=== PATIENT | female | born 1980 | race Caucasian/White ===

== ENCOUNTER 2019-10-20 16:56 | Emergency (ER) | payer OTHER ==
[2019-10-20 17:02] VITALS: BP 114/67; PULSE 89; RESP 20; TEMP 98.9
--- NOTE | 2019-10-20 17:35 | ED ---
URI HPI - General Chief Complaint: Upper Respiratory Infection Stated Complaint: R/O Covid Time Seen by Provider: 10/20/19 17:05 Source: patient Mode of arrival: ambulatory Limitations: no limitations - History of Present Illness Initial Comments: 39-year-old female patient presents to the emergency department today for COVID- 19 testing. Patient is currently receiving rehabilitation at [facility] for heroin addiction. She had a visit with her boyfriend a couple of days ago who had a fever. Patient states that staff at [facility] wanted her tested for COVID-19. Patient states that she does have a mild cough that she has had this for several months. States it has not changed. She denies any chest pain or shortness of breath. Denies any fever or chills. She denies nausea, vomiting, diarrhea, or loss of taste or smell. Patient is 14 weeks . Denies any abdominal pain or cramping. Denies abnormal vaginal bleeding or discharge. Patient states she feels well and is unsure why they wanted her to be tested. Patient denies any recent rash, back pain, numbness, tingling, dizziness, weakness, hematuria, dysuria, urinary urgency, urinary frequency, headache, visual changes, or any other complaints. - Related Data Allergies Allergy/AdvReac Type Severity Reaction Status Date / Time No Known Allergies Allergy Verified 10/20/19 17:02 Review of Systems ROS Statement: Those systems with pertinent positive or pertinent negative responses have been documented in the HPI. ROS Other: All systems not noted in ROS Statement are negative. Past Medical History Past Medical History: No Reported History History of Any Multi-Drug Resistant Organisms: None Reported Past Surgical History: No Surgical Hx Reported Past Psychological History: No Psychological Hx Reported Smoking Status: Current every day smoker Past Alcohol Use History: None Reported Past Drug Use History: Heroin, Marijuana General Exam Limitations: no limitations General appearance: alert, in no apparent distress, other (This is a well- developed, well-nourished adult female patient in no acute distress. Vital signs upon presentation are temperature 98.9F, pulse 89, respirations 20, blood pressure 114/67, pulse ox 98% on room air.) Eye exam: Present: normal appearance, PERRL, EOMI. Absent: scleral icterus, conjunctival injection, periorbital swelling ENT exam: Present: normal exam, normal oropharynx, mucous membranes moist Respiratory exam: Present: normal lung sounds bilaterally. Absent: respiratory distress, wheezes, rales, rhonchi, stridor Cardiovascular Exam: Present: regular rate, normal rhythm, normal heart sounds. Absent: systolic murmur, diastolic murmur, rubs, gallop, clicks GI/Abdominal exam: Present: soft, normal bowel sounds. Absent: distended, tenderness, guarding, rebound, rigid Neurological exam: Present: alert, oriented X3, CN II-XII intact Psychiatric exam: Present: normal affect, normal mood Skin exam: Present: warm, dry, intact, normal color. Absent: rash Course Vital Signs 10/20/19 16:58 Temperature 98.9 F Pulse Rate 89 Respiratory 20 Rate Blood Pressure 114/67 O2 Sat by Pulse 98 Oximetry Medical Decision Making - Medical Decision Making 39-year-old female patient who is 14 weeks presents to the emergency department today sent by [facility] staff for COVID-19 testing. Patient is currently asymptomatic and has no fever. heart tones were 150-160. She has no concerns regarding the . Did discuss with patient that COVID-19 testing is being reserved for those severely ill or being admitted to the hospital. We did discuss possibility of COVID-19 infection and signs or symptoms of worsening illness. Patient is instructed to follow up with the primary care physician for recheck in 1-2 days. We did discuss proper quarantine procedures. Return parameters are discussed in detail. Patient verbalizes understanding and agrees with this plan. Disposition Clinical Impression: Well adult health check Disposition: HOME SELF-CARE Condition: Good Instructions (If sedation given, give patient instructions): Chronic Cough (ED) Additional Instructions: Rest. Follow up with your primary care physician and your [employer] for recheck as soon as possible. Return to the emergency department immediately for any new, worsening, or concerning symptoms. Is patient prescribed a controlled substance at d/c from ED?: No Referrals: None,Stated [Primary Care Provider] - 1-2 days Time of Disposition: 17:35
== END 2019-10-20 17:45 | disposition home or self-care (01) ==
LOC: EC 16:56
DX: O99.89 Other specified diseases and conditions complicating pregnancy, childbirth and the puerperium (principal); R05 Cough; O99.322 Drug use complicating pregnancy, second trimester; F11.20 Opioid dependence, uncomplicated; O99.332 Smoking (tobacco) complicating pregnancy, second trimester; F17.200 Nicotine dependence, unspecified, uncomplicated; Z3A.14 14 weeks gestation of pregnancy
CPT/HCPCS: 99283

== ENCOUNTER → 2021-09-23 | Outpatient (CLI) | payer OTHER | END | disposition home or self-care (01) | LOC: LABWHC1 13:32 | PROVIDERS: ATTEND Family Medicine | DX: F11.20 Opioid dependence, uncomplicated (principal) | CPT/HCPCS: 36415; 84702 ==